=== PATIENT | male | born 1955 | race African-American/Black ===

== ENCOUNTER 2018-05-05 12:47 | Day surgery (SDC) | payer OTHER ==
[2018-05-04 13:01] VITALS: BMI 31.1
[2018-05-05] MEDS ORDERED: HEPARIN NA (PORCINE) 5,000 UNITS/ML 1ML VIAL ONE ×2 (17:04→18:36)
[2018-05-05] MEDS ORDERED: LIDOCAINE HCL 1%, 10 MG/ML (20ML VIAL) ONE (17:04)
[2018-05-05] MEDS ORDERED: MIDAZOLAM HCL 2 MG/2 ML SINGLE DOSE VIAL ONE (17:56)
[2018-05-05] MEDS ORDERED: ceFAZolin SODIUM 1 GM VIAL IVPB ONE (18:01)
[2018-05-05] MEDS ORDERED: ceFAZolin SODIUM 1 GM VIAL ONE (18:01)
[2018-05-05] MEDS ORDERED: LIDOCAINE HCL 1%, 10 MG/ML (50 mL VIAL) IJ ONE ×2 (18:10)
[2018-05-05] MEDS ORDERED: METOPROLOL TARTRATE 5 MG/5 ML VIAL ONE (18:29)
--- NOTE | 2018-05-05 19:15 | HP ---
Admitting History and Physical - Admission Chief Complaint: RLE claudication less than 2 blocks. Limitations to Obtaining History: No Limitations - Smoking History Smoking history: Current every day smoker Have you smoked in the past 12 months: Yes Aproximately how many cigarettes per day: 10 - Alcohol/Substance Use Hx Alcohol Use: Yes (SOCIAL) Home Medications - Allergies Allergies/Adverse Reactions: Allergies Allergy/AdvReac Type Severity Reaction Status Date / Time No Known Allergies Allergy Verified 05/05/18 13:36 - Home Medications Home Medications: Ambulatory Orders Aspirin 81 mg PO DAILY 07/05/13 Carvedilol [Coreg -] 25 mg PO BID 07/05/13 Enalapril Maleate [Vasotec -] 20 mg PO BID 07/05/13 Tramadol HCl [Ultram] 100 mg PO BID 07/05/13 hydrALAZINE HCL [Apresoline] 50 mg PO BID 07/05/13 Ammonium Lactate Cream [Lac-Hydrin 12% Cream -] 1 applic TP DAILY #60 tube 09/08 Carvedilol 25 mg PO BID 05/04/18 Docusate Sodium [Colace] 100 mg PO BID 05/04/18 Esomeprazole Magnesium 40 mg PO DAILY 05/04/18 Furosemide [Lasix] 40 mg PO BID 05/04/18 Insulin Detemir [Levemir Flextouch] 45 unit SQ ACHS 05/04/18 Insulin Lispro [Humalog] 30 unit SQ DAILY 05/04/18 Rivaroxaban [Xarelto -] 20 mg PO DAILY 05/04/18 Spironolactone [Aldactone] 25 mg PO DAILY 05/04/18 Zolpidem Tartrate [Ambien] 10 mg PO PRN PRN 05/04/18 Gabapentin 400 mg PO BID 05/05/18 Simvastatin 20 mg PO DAILY 05/05/18 Review of Systems - Review of Systems Constitutional: reports: No Symptoms Eyes: reports: No Symptoms HENT: reports: No Symptoms Neck: reports: No Symptoms Cardiovascular: reports: No Symptoms Respiratory: reports: No Symptoms Gastrointestinal: reports: No Symptoms Integumentary: reports: No Symptoms Neurological: reports: No Symptoms Endocrine: reports: No Symptoms Hematology/Lymphatic: reports: No Symptoms Psychiatric: reports: No Symptoms Physical Examination Vital Signs: Vital Signs Temperature 98.6 F 05/05/18 13:33 Pulse Rate 70 05/05/18 13:33 Respiratory Rate 20 05/05/18 13:33 Blood Pressure 130/78 05/05/18 13:33 O2 Sat by Pulse Oximetry (%) 96 05/05/18 13:32 Constitutional: Yes: Well Nourished, No Distress, Calm Eyes: Yes: WNL, Conjunctiva Clear, EOM Intact HENT: Yes: WNL, Atraumatic, Normocephalic Neck: Yes: WNL, Supple, Trachea Midline Cardiovascular: Yes: WNL, Regular Rate and Rhythm Respiratory: Yes: WNL, Regular, CTA Bilaterally Gastrointestinal: Yes: WNL, Normal Bowel Sounds Musculoskeletal: Yes: WNL Extremities: Yes: WNL Edema: No Peripheral Pulses WNL: No Integumentary: Yes: WNL Neurological: Yes: WNL, Alert, Oriented ...Motor Strength: WNL Psychiatric: Yes: WNL Problem List - Problems (1) Claudication of right lower extremity Assessment/Plan: RLE claudication 1. For RLE angiogram today Code(s): I73.9 - PERIPHERAL VASCULAR DISEASE, UNSPECIFIED
--- NOTE | 2018-05-05 19:17 | OP ---
Operative Note - Note: Operative Date: 05/05/18 Pre-Operative Diagnosis: RLE claudication Operation: Aortogram, CO2 RLE angiogram, Popliteal artery atherectomy with DCB angioplasty, anterior tibial artery angioplasty Findings: 90 percent stenosis of popliteal artery 80 percent stenosis anterior tibial artery Post-Operative Diagnosis: Same as Pre-op Surgeon: Lamberto Sims Anesthesia: Fractional Estimated Blood Loss (mls): 50 Operative Report Dictated: Yes
[2018-05-05] MEDS ORDERED: SODIUM CHLORIDE 1,000 ML IV SCH (19:45)
[2018-05-05 20:36] VITALS: BP 152/90; PULSE 72; TEMP 97.4
--- NOTE | 2018-05-07 10:50 | OP ---
DATE OF OPERATION: 05/05/2018 PREOPERATIVE DIAGNOSIS: Claudication, right leg. POSTOPERATIVE DIAGNOSIS: Claudication, right leg. PROCEDURE: Aortogram, right lower extremity angiogram, popliteal artery athrectomy with drug-coated balloon angioplasty, tibial artery angioplasty. SURGEON: Lamberto Hall DO ANESTHESIA: Fractional. BLOOD LOSS: 50 mL. INDICATIONS: The patient is a 62-year-old male with right lower extremity claudication. He had preoperative ultrasound performed showing that he has a 75% blockage behind his right popliteal artery. The patient was consented for the procedure understanding all risks, benefits, and alternatives then came into the operating room. DESCRIPTION OF PROCEDURE: Once in the operating room, he was laid on the operating room table in a supine manner. The area of the right and left groin was prepped and draped in a sterile surgical manner. We then injected 10 mL of lidocaine 1% in the area using ultrasound guidance. We also used ultrasound guidance and we were able to then use our micropuncture needle and puncture the right common femoral artery. Micropuncture wire was inserted, and a traditional 5-Azeri sheath was inserted. A 0.035 floppy guidewire was then inserted into the aorta followed by an Omni Flush catheter. We then shot an aortogram via hand injection showing that the aorta and the iliac arteries were without any disease. We then used a 0.035 floppy guidewire and went up and over to the common femoral artery and Omni Flush catheter followed. We then shot an angiogram of the right lower extremity showing that the common femoral artery, the profunda, and the SFA were patent. Behind the popliteal artery he had about an 80% stenosis, and the origin of the anterior tibial artery probably had an 80% stenosis. The patient had 2-vessel runoff into the foot. Multiple images were then taken using CO2 so that we could preserve the patient's kidneys because the patient had the creatinine. We then exchanged for a ViperWire. We then went ahead and performed a CSI orbital athrectomy of the popliteal artery, and we did that on low and medium. We then went ahead and used a 5 x 4 drug-coated Lutonix balloon and performed angioplasty of the popliteal artery. We then placed a 3 x 4 Ultraverse balloon and performed angioplasty of the anterior tibial artery. We then performed a completion angiogram showing that the SFA was patent, the popliteal artery was patent, and the anterior tibial artery was patent, and there was good, brisk flow going all the way down into the foot. At this point, we brought our sheath up and over. StarClose device was successfully deployed in the left common femoral artery. Pressure was held for 5 minutes. After there was no bleeding, the area was wet and dried, and Dermabond was placed. The patient tolerated the procedure well with no complications. The patient was transferred to the PACU in stable condition. LAMBERTO HALL DO [id number]
== END 2018-05-05 20:35 | disposition home or self-care (01) ==
LOC: JASUSAT 12:47 → JASU-SURG 12:47 → J7W 20:17 → JASUSAT 20:35
PROVIDERS: ATTEND Surgery Vascular Surgery
PROC: 047M3Z1 Dilation of Right Popliteal Artery using Drug-Coated Balloon, Percutaneous Approach (ICD-10-PCS; principal; 2018-05-05 14:30)
DX: I70.211 Atherosclerosis of native arteries of extremities with intermittent claudication, right leg (principal); I10 Essential (primary) hypertension; E11.9 Type 2 diabetes mellitus without complications; Z79.4 Long term (current) use of insulin
CPT/HCPCS: 37225; 37228; C2623; 82962; 94760; J1644

== ENCOUNTER 2018-06-02 04:50 | Day surgery (SDC) | payer OTHER ==
[2018-05-31 14:52] VITALS: BMI 31.4
[2018-06-02] MEDS ORDERED: HEPARIN NA (PORCINE) 5,000 UNITS/ML 1ML VIAL ONE ×2 (07:30→09:48)
[2018-06-02] MEDS ORDERED: LIDOCAINE HCL 1%, 10 MG/ML (20ML VIAL) ONE (07:30)
[2018-06-02] MEDS ORDERED: ONDANSETRON 4 MG/2 ML VIAL IVPUSH PRN (08:56)
[2018-06-02] MEDS ORDERED: LACTATED RINGERS SOLUTION 1,000 ML IV SCH (09:00)
[2018-06-02] MEDS ORDERED: MIDAZOLAM HCL 2 MG/2 ML SINGLE DOSE VIAL ONE (09:15)
[2018-06-02] MEDS ORDERED: ceFAZolin SODIUM 1 GM VIAL IVPB ONE (09:29)
[2018-06-02] MEDS ORDERED: ceFAZolin SODIUM 1 GM VIAL ONE (09:30)
[2018-06-02] MEDS ORDERED: LIDOCAINE HCL 1%, 10 MG/ML (50 mL VIAL) IJ ONE (09:34)
[2018-06-02] MEDS ORDERED: PROPOFOL 20 ML ONE (09:42)
--- NOTE | 2018-06-02 10:24 | HP ---
Admitting History and Physical - Admission Chief Complaint: left lower extremity claudication Limitations to Obtaining History: No Limitations - Smoking History Smoking history: Current every day smoker Have you smoked in the past 12 months: Yes Aproximately how many cigarettes per day: 10 - Alcohol/Substance Use Hx Alcohol Use: Yes (SOCIAL) Home Medications - Allergies Allergies/Adverse Reactions: Allergies Allergy/AdvReac Type Severity Reaction Status Date / Time No Known Allergies Allergy Verified 05/31/18 14:29 - Home Medications Home Medications: Ambulatory Orders Aspirin 81 mg PO DAILY 07/05/13 Carvedilol [Coreg -] 25 mg PO BID 07/05/13 Enalapril Maleate [Vasotec -] 20 mg PO BID 07/05/13 Tramadol HCl [Ultram] 100 mg PO BID 07/05/13 hydrALAZINE HCL [Apresoline] 50 mg PO BID 07/05/13 Docusate Sodium [Colace] 100 mg PO BID 05/04/18 Esomeprazole Magnesium 40 mg PO DAILY 05/04/18 Furosemide [Lasix] 40 mg PO BID 05/04/18 Insulin Detemir [Levemir Flextouch] 30 unit SQ ACHS 05/04/18 Insulin Lispro [Humalog] 20 unit SQ DAILY 05/04/18 Rivaroxaban [Xarelto -] 20 mg PO DAILY 05/04/18 Spironolactone [Aldactone] 25 mg PO DAILY 05/04/18 Zolpidem Tartrate [Ambien] 10 mg PO PRN PRN 05/04/18 Gabapentin 400 mg PO BID 05/05/18 Simvastatin 20 mg PO DAILY 05/05/18 Ibuprofen 400 mg PO TID 05/31/18 Sildenafil Citrate [Viagra] 50 mg PO DAILY 05/31/18 New Blood Thinner? 1 tab PO DAILY 06/02/18 Review of Systems - Review of Systems Constitutional: reports: No Symptoms Eyes: reports: No Symptoms HENT: reports: No Symptoms Neck: reports: No Symptoms Cardiovascular: reports: No Symptoms Respiratory: reports: No Symptoms Gastrointestinal: reports: No Symptoms Genitourinary: reports: No Symptoms Musculoskeletal: reports: No Symptoms Integumentary: reports: No Symptoms Neurological: reports: No Symptoms Endocrine: reports: No Symptoms Hematology/Lymphatic: reports: No Symptoms Psychiatric: reports: No Symptoms Physical Examination Vital Signs: Vital Signs Temperature 97.4 F L 05/31/18 14:27 Pulse Rate 82 05/31/18 14:27 Respiratory Rate 20 05/31/18 14:27 Blood Pressure 146/88 05/31/18 14:27 O2 Sat by Pulse Oximetry (%) 94 L 06/02/18 07:56 Constitutional: Yes: Well Nourished, No Distress, Calm Eyes: Yes: WNL, Conjunctiva Clear, EOM Intact HENT: Yes: WNL, Atraumatic, Normocephalic Neck: Yes: WNL, Supple, Trachea Midline Cardiovascular: Yes: WNL, Regular Rate and Rhythm Respiratory: Yes: WNL, Regular, CTA Bilaterally Gastrointestinal: Yes: WNL, Normal Bowel Sounds Musculoskeletal: Yes: WNL Extremities: Yes: WNL Edema: No Peripheral Pulses WNL: Yes (palpable PT pulse ) Integumentary: Yes: WNL Neurological: Yes: WNL, Alert, Oriented ...Motor Strength: WNL Psychiatric: Yes: WNL Problem List - Problems (1) Claudication of left lower extremity Assessment/Plan: Left lower extremity claudication 1. For angiogram today . preop US showed 70% stenosis in left SFA. Code(s): I73.9 - PERIPHERAL VASCULAR DISEASE, UNSPECIFIED
--- NOTE | 2018-06-02 10:25 | OP ---
Operative Note - Note: Operative Date: 06/02/18 Pre-Operative Diagnosis: LLE claudication Operation: Aortogram, LLE angiogram, SFA atherectomy, SFA DCB angioplaty Findings: 75% sfa stenosis Post-Operative Diagnosis: Same as Pre-op Anesthesia: Fractional Estimated Blood Loss (mls): 50 Operative Report Dictated: Yes
[2018-06-02 16:27] VITALS: BP 140/90; PULSE 88; TEMP 92
--- NOTE | 2018-07-03 10:54 | OP ---
DATE OF OPERATION: 06/02/2018 PREOPERATIVE DIAGNOSIS: Left lower extremity claudication. POSTOPERATIVE DIAGNOSIS: Left lower extremity claudication. PROCEDURE: Aortogram; left lower extremity angiogram; superior femoral artery atherectomy; superficial femoral artery drug-coated balloon angioplasty. SURGEON: Lamberto Hall DO ANESTHESIA: Fractional. BLOOD LOSS: 50 mL. The patient is a 62-year-old male that has left lower extremity claudication less than 2 blocks. It is lifestyle-limiting. He had a preoperative ultrasound showing that he has an SFA lesion of about 80%. The patient came in through ambulatory surgery. The patient was consented for the procedure, understanding all risks, benefits, and alternatives, and then taken to the operating room. Once in the operating room, he was laid on the operative table in a supine manner and the area of the right and left groin were prepped and draped in sterile surgical manner. We then went ahead and injected 10 mL of lidocaine 1% over the right common femoral artery. We then went ahead and punctured the right common femoral artery using a micropuncture needle. A micropuncture wire was inserted, a micropuncture sheath was inserted. A 0.035 floppy guidewire was inserted into the aorta, followed by a sheath. We then placed a 0.035 floppy guidewire up into the aorta, followed by an Omniflush catheter. We then shot an aortogram by hand-injection, showing that the aorta and the iliac arteries are without any disease. We then placed a 0.035 floppy guidewire up and over into the left common femoral artery and the Omniflush catheter followed. We then shot an angiogram of the left lower extremity by hand-injection, showing that the common femoral artery, the profunda, and the proximal SFA were patent. The mid SFA to distal SFA had an 80% to 90% stenosis. Popliteal artery was patent and the patient had 2-vessel runoff into the foot. At this point, was placed a 0.035 stiff guidewire into the SFA, removed the Omniflush catheter, and placed a 6 x 45 crossover sheath. Then, 5000 units of IV heparin were administered to the patient. We then placed a 0.035 stiff guidewire down to our stenosis and, using our Quick-Cross catheter, we were able to cross our stenosis and place the wire in the popliteal artery. We then exchanged the wire for a ViperWire. We then went ahead and performed orbital atherectomy of our SFA lesion under low and medium. We then shot a completion angiogram, showing that the stenosis was still present and we went ahead and used a 6 x 6 drug-coated Lutonix balloon and performed angioplasty of the SFA. We left the balloon up for 3 minutes disseminating into the artery. Completion angiogram after angioplasty showed that the SFA was patent, there was no recoil, there was no dissection, there was good brisk flow into the tibial arteries and at the foot. At this point, we decided no more intervention was needed. We brought our sheath up and over and StarClose was successfully deployed in the right common femoral artery. Pressure was held for 5 minutes. After there was no more bleeding, the area was cleaned and dried and Dermabond was placed. The patient tolerated the procedure with no complication. The patient transferred to PACU in stable condition. Total blood loss was 50 mL. LAMBERTO HALL DO [id number]
== END 2018-06-02 12:45 | disposition home or self-care (01) ==
LOC: JASU-SURG 04:50
PROVIDERS: ATTEND Surgery Vascular Surgery
PROC: 047L3Z1 Dilation of Left Femoral Artery using Drug-Coated Balloon, Percutaneous Approach (ICD-10-PCS; principal; 2018-06-02 09:00)
DX: I70.212 Atherosclerosis of native arteries of extremities with intermittent claudication, left leg (principal); E11.9 Type 2 diabetes mellitus without complications; Z79.4 Long term (current) use of insulin; I10 Essential (primary) hypertension; G47.30 Sleep apnea, unspecified; I42.9 Cardiomyopathy, unspecified
CPT/HCPCS: 37225; C2623; 76000-TC-FY; 82962; 94760; J1644

== ENCOUNTER 2019-01-04 12:56 | Emergency (ER) | payer OTHER ==
[2019-01-04 13:02] VITALS: BMI 30.3
[2019-01-04] MEDS ORDERED: BACITRACIN 0.9 GM PACKET ONE (14:02)
[2019-01-04 14:13] LABS: BASO % 0.3 % (0-2.0); HEMATOCRIT 35.8 % (35.4-49); HEMOGLOBIN 10.8 GM/dL (11.7-16.9); LYMPH % 12.5 % (8-40); MCH 21.4 pg (25.7-33.7); MCHC 30.2 g/dl (32.0-35.9); MEAN CELL VOLUME 71.1 fl (80-96); MEAN PLT VOLUME 7.4 fl (7.5-11.1); MONO % 9.6 % (3.8-10.2); NEUT % 76.6 % (42.8-82.8); PLATELET COUNT 263 K/MM3 (134-434); RBC 5.03 M/mm3 (4.00-5.60); RDW 20.4 % (11.9-15.9); WHITE BLOOD COUNT 7.1 K/mm3 (4.0-10.0)
[2019-01-04 14:25] LABS: INR 3.12 (0.83-1.09); PROTHROMBIN TIME (PATIENT) 37.2 SEC (9.7-13.0)
--- NOTE | 2019-01-04 14:29 | PDOC ---
History of Present Illness - General Chief Complaint: Wound Stated Complaint: LEG WOUNDS Time Seen by Provider: 01/04/19 13:10 History Source: Patient Exam Limitations: No Limitations - History of Present Illness Initial Comments: 01/04/19 14:23 63yo M with PMH of PAD s/p stent in bilateral lower extremities 2018, AICD, CHF , IDDM, HTN, HLD presenting to ED for complaint of L leg wound. He has had the wound for about a month or so but pt states it keeps draining clear fluid and is not going away. Also has similar but shallower wounds on the posterior R calf. He also endorses L toe nail falling off in the shower this AM which is not actively bleeding. He states that he has gotten the wounds before and it would heal on its own leaving a scar. Denies fever, chills, leg pain, claudication, cold extremities, abdominal pain, sob, cp, palpitations, headache , dizziness, urinary/bowel symptoms. He is also complaining of firm lower extremities which developed a few months after stent placement which is not going away. PMD: Alix PMH: see hpi PSH: see hpi Meds: see med rec Allergies: nkda Social: 5 cigarettes/day Past History - Past Medical History Allergies/Adverse Reactions: Allergies Allergy/AdvReac Type Severity Reaction Status Date / Time No Known Allergies Allergy Verified 01/04/19 13:01 Home Medications: Ambulatory Orders Aspirin 81 mg PO DAILY 07/05/13 Carvedilol [Coreg -] 25 mg PO BID 07/05/13 Tramadol HCl [Ultram] 100 mg PO BID 07/05/13 hydrALAZINE HCL [Apresoline] 50 mg PO BID 07/05/13 Docusate Sodium [Colace] 100 mg PO BID 05/04/18 Esomeprazole Magnesium 40 mg PO DAILY 05/04/18 Furosemide [Lasix] 40 mg PO BID 05/04/18 Insulin Detemir [Levemir Flextouch] 30 unit SQ ACHS 05/04/18 Insulin Lispro [Humalog] 20 unit SQ DAILY 05/04/18 Rivaroxaban [Xarelto -] 20 mg PO DAILY 05/04/18 Spironolactone [Aldactone] 25 mg PO DAILY 05/04/18 Zolpidem Tartrate [Ambien] 10 mg PO PRN PRN 05/04/18 Gabapentin 400 mg PO TID 05/05/18 Simvastatin 20 mg PO DAILY 05/05/18 Sildenafil Citrate [Viagra] 50 mg PO PRN 05/31/18 Cephalexin Monohydrate [Keflex -] 500 mg PO Q6H #28 capsule 01/04/19 Sulfamethoxazole/Trimethoprim [Bactrim Ds -] 1 tab PO BID #14 tablet 01/04/19 Anemia: No Asthma: No Cancer: No Cardiac Disorders: Yes (IMPLANTED DEFIBRILLATOR; ENLARGED HEART) CVA: No COPD: (H/O SLEEP APNEA) CHF: Yes Dementia: No Diabetes: Yes GI Disorders: No Disorders: No HTN: Yes Hypercholesterolemia: Yes Liver Disease: No Seizures: No Thyroid Disease: No Other medical history: wounds - Surgical History Abdominal Surgery: No Appendectomy: No Cardiac Surgery: Yes Cholecystectomy: No Lung Surgery: No Neurologic Surgery: No Orthopedic Surgery: Yes (Left THR) - Suicide/Smoking/Psychosocial Hx Smoking History: Never smoked Have you smoked in the past 12 months: Yes Number of Cigarettes Smoked Daily: 10 Information on smoking cessation initiated: No 'Breaking Loose' booklet given: 05/04/18 Hx Alcohol Use: No Drug/Substance Use Hx: No Substance Use Type: Alcohol Hx Substance Use Treatment: No *Physical Exam - Vital Signs Last Vital Signs Temp Pulse Resp BP Pulse Ox 99 F 71 17 142/71 99 01/04/19 13:00 01/04/19 13:00 01/04/19 13:00 01/04/19 13:00 01/04/19 13:21 ED Treatment Course - LABORATORY CBC & Chemistry Diagram: 01/04/19 13:52 01/04/19 13:52 - ADDITIONAL ORDERS Additional order review: 01/04/19 13:52 RBC 5.03 MCV 71.1 L MCHC 30.2 L RDW 20.4 H MPV 7.4 L Neutrophils % 76.6 Lymphocytes % 12.5 Monocytes % 9.6 Eosinophils % 1.0 Basophils % 0.3 Medical Decision Making - Medical Decision Making 01/04/19 14:27 63yo M with PMH of PAD s/p stent in bilateral lower extremities 2018, AICD, CHF , IDDM, HTN, HLD presenting to ED for complaint of L leg wound. He has had the wound for about a month or so but pt states it keeps draining clear fluid and is not going away. Also has similar but shallower wounds on the posterior R calf. He also endorses L toe nail falling off in the shower this AM which is not actively bleeding. He states that he has gotten the wounds before and it would heal on its own leaving a scar. Denies fever, chills, leg pain, claudication, cold extremities, abdominal pain, sob, cp, palpitations, headache , dizziness, urinary/bowel symptoms. He is also complaining of firm lower extremities which developed a few months after stent placement which is not going away. Vitals: wnl PE: 2cm wound on L lateral troy with healing wounds on L troy, shallow ulcerations on posterior R calf, dry toenails, 4th digit L toenail missing with dried blood. L ulceration has edema and erythema without clear borders. Clear fluid draining. Ddx includes but not limited to cellulitis, erysipelas, necrotizing fascitis, venous stasis ulcer *DC/Admit/Observation/Transfer Diagnosis at time of Disposition: Leg wound, right Qualifiers: Encounter type: initial encounter Qualified Code(s): S81.801A - Unspecified open wound, right lower leg, initial encounter Leg wound, left Qualifiers: Encounter type: initial encounter Qualified Code(s): S81.802A - Unspecified open wound, left lower leg, initial encounter - Discharge Dispostion Disposition: HOME Condition at time of disposition: Good Decision to Admit order: No - Prescriptions Prescriptions: Cephalexin Monohydrate [Keflex -] 500 mg PO Q6H #28 capsule Sulfamethoxazole/Trimethoprim [Bactrim Ds -] 1 tab PO BID #14 tablet - Referrals Referrals: Lamberto Sims MD [Non Staff, Medical] - - Patient Instructions Additional Instructions: You were seen in the emergency room for wounds on your legs. They are superficial and the blood tests show that it is not a deep infection. I recommend making an appointment with Dr. Sims and the wound clinic [phone] You may need a referral so please also see your primary care doctor as well within the next week. Antibiotics were sent to your pharmacy, please take as directed. Keflex ( cephalexin) 500mg every 6 hours for 7 days and Bactrim DS twice a day for 7 days. Keep the wounds clean and dry, apply a dressing on top. Keep your legs elevated when you're at rest. Come back to the emergency room if swelling gets worse, wound appears worse, you have fever, the legs look more red, they are hot to the touch or if any new concerning symptom develops. Thank you - Post Discharge Activity
[2019-01-04 14:33] LABS: ALBUMIN 3.1 g/dl (3.4-5.0); BILIRUBIN,TOTAL 1.4 mg/dL (0.2-1); BLOOD UREA NITROGEN 22.8 mg/dL (7-18); CALCIUM 8.5 mg/dL (8.5-10.1); CREATININE 1.6 mg/dL (0.55-1.3); POTASSIUM 3.5 mmol/L (3.5-5.1); TOT PROT 6.5 g/dl (6.4-8.2)
[2019-01-04 15:01] LABS: ANISOCYTOSIS 0; MACROCYTOSIS 0; PLATELET ESTIMATE NORMAL
--- NOTE | 2019-01-04 15:46 | PDOC ---
Documentation entered by Hue Aldana SCRIBE, acting as scribe for Tom Hernandez MD. Tom Hernandez MD: This documentation has been prepared by the Kayta sneed Sammi, SCRIBE, under my direction and personally reviewed by me in its entirety. I confirm that the documentation accurately reflects all work, treatment, procedures, and medical decision making performed by me. Attending Attestation - Resident Resident Name: LanaVeronica - ED Attending Attestation I have performed the following: I have examined & evaluated the patient, The case was reviewed & discussed with the resident, I agree w/resident's findings & plan, Exceptions are as noted - HPI HPI: 01/04/19 13:56 The patient is a 63 year old male, with a significant PMH of DM, left lower extremity SFA angioplasty 03/2018 (Dr. Sims), who presents to the emergency department for evaluation of 1 month of wounds and pain to bilateral lower extremities. The patient complains of pain and swelling to lower legs. He notes he walks about the distance of 2 parking meters and then needs to rest due to pain to his legs. He states this has been going on for atleast 2 months with no progression. He also notes two wounds to the L leg, 1 wound to the R leg which have not changed over the last month. He states one of the wounds to the L leg leaks clear fluids at times. He also notes the nail on his L 4th toe fell off in the shower today. The patient reports blood sugars typically in the high 100s. He denies numbness or weakness to the LE. Patient notes he had an appointment today with a leg doctor at [facility] but felt [facility] could do more for his circumstance prompting ED visit. Denies The patient denies chest pain, shortness of breath, headache and dizziness. Denies fever, chills, nausea, vomiting, diarrhea and constipation. Denies dysuria, frequency, urgency and hematuria. Denies focal weakness/numbness Allergies: NKA Past surgical history: left lower extremity SFA angioplasty 03/2018 Vascular: Levi - Physicial Exam PE: 01/04/19 13:56 GENERAL: Awake, alert, and fully oriented, in no acute distress EYES: PERRLA, EOMI, sclera anicteric, conjunctiva clear ENT: Oropharynx clear without exudates. Moist mucosa NECK: Normal ROM, supple, no lymphadenopathy, JVD, or masses LUNGS: Breath sounds equal, clear to auscultation bilaterally. No wheezes, and no crackles HEART: Regular rate and rhythm, normal S1 and S2, no murmurs, rubs or gallops ABDOMEN: Soft, nontender, normoactive bowel sounds. No guarding, no rebound. No masses EXTREMITIES: (+)1cm ulcer to left lateral mid troy with fibrinous material and mild clear drainage. No surrounding erythema or warmth (+)2mm superficial ulcer to left medial troy with no drainage, erythema, or warmth +(2mm) R distal healed ulcer to posterior distal calf, dry w/o surrounding erythema, warmth, drainage (+)left 4th digit missing toenail. Warm, well perfused bilateral feet with normal cap refill NEUROLOGICAL: Normal speech, cranial nerves intact,5/5 strength in all 4 extremities proximally and distally, normal sensation to light touch in all 4 extremities, normal cerebellar exam, normal gait SKIN: As noted above - Medical Decision Making 01/04/19 15:00 63yo M hx DM, PAD s/p L SFA stent presents to the ED with 2 months of claudication and 1 month of multiple wounds With regards to claudication, on exam distally, LE are WWP and pt is unlikely to require emergent intervention, however will obtain arterial US to evaluate for patency. Attempted to discuss with Dr. Sims, however he is not available per his answering service due to the holiday Pt will need close vascular f/u if US is wnl With regards to multiple leg wounds, they do not appear infected and pt has no systemic signs of infection at this time. 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 No white count. Arterial US of LE with no hemodynamically significant stenosis Pt contines to be well appearing Given high risk of infection of leg wounds, will treat with keflex and bactrim No emergent condition requiring admission at this time Will DC pt with close f.u with Dr. Sims for his claudication and wound care I discussed the physical exam findings, ancillary test results and final diagnoses with the patient. I answered all of the patient's questions. The patient was satisfied with the care received and felt comfortable with the discharge plan and treatment plan. The patient will call their primary care physician within 24 hours to arrange follow-up and will return to the Emergency Department with any new, persistent or worsening symptoms.
[2019-01-04 17:14] VITALS: TEMP 98.1
[2019-01-04 17:18] VITALS: BP 159/97; PULSE 68
== END 2019-01-04 17:35 | disposition home or self-care (01) ==
LOC: JER 12:56
DX: S81.801A Unspecified open wound, right lower leg, initial encounter (principal); S81.802A Unspecified open wound, left lower leg, initial encounter; I25.10 Atherosclerotic heart disease of native coronary artery without angina pectoris; E11.9 Type 2 diabetes mellitus without complications; I10 Essential (primary) hypertension; E78.5 Hyperlipidemia, unspecified; T82.9XXA Unspecified complication of cardiac and vascular prosthetic device, implant and graft, initial encounter; I73.9 Peripheral vascular disease, unspecified; Z79.4 Long term (current) use of insulin
CPT/HCPCS: 36415; 80053; 83605; 85025; 85610; 87040; 93925-TC; 99282-25

== ENCOUNTER 2019-05-30 10:17 | Emergency (ER) | payer OTHER ==
--- NOTE | 2019-05-30 11:33 | PDOC ---
History of Present Illness - General Chief Complaint: Injury Stated Complaint: Wound Time Seen by Provider: 05/30/19 10:25 - History of Present Illness Initial Comments: 05/30/19 11:27 The patient is a 63 year old male with a history of DM, VAD, HTN, HLD, CHF who presents for evaluation of a wound to his left foot. Per the patient's NH, the patient was picking at his left 5th toe and ripped off his toenail. They were unable to stop the bleeding due to the patient being on Xeralto prompting his presentation to the ED for further evaluation. The patient otherwise denies fevers, chills, SOB, chest pain, nausea, vomiting, abdominal pain, numbness, tingling, or weakness. Past History - Past Medical History Allergies/Adverse Reactions: Allergies Allergy/AdvReac Type Severity Reaction Status Date / Time No Known Allergies Allergy Verified 05/30/19 11:07 Home Medications: Ambulatory Orders Aspirin 81 mg PO DAILY 07/05/13 Carvedilol [Coreg -] 25 mg PO BID 07/05/13 hydrALAZINE HCL [Apresoline] 50 mg PO BID 07/05/13 Rivaroxaban [Xarelto -] 20 mg PO DAILY 05/04/18 Spironolactone [Aldactone] 25 mg PO DAILY 05/04/18 Zolpidem Tartrate [Ambien] 10 mg PO PRN PRN 05/04/18 Acetaminophen 325 mg PO Q6H 05/30/19 Albuterol 2.5/Ipratropium 0.5 [Duoneb -] 1 amp NEB Q6H PRN 05/30/19 Cephalexin [Keflex] 500 mg PO BID 05/30/19 Guaifenesin 100 mg PO Q4H PRN 05/30/19 Isosorbide Mononitrate [Isosorbide Mononitrate ER] 30 mg PO DAILY 05/30/19 Lactobacillus Acidophilus [Acidophilus] 1 each PO DAILY 05/30/19 Mineral Oil/Hydrophil Petrolat [Dermaphor Ointment] gm TP BID 05/30/19 Omeprazole 40 mg PO DAILY 05/30/19 Rivaroxaban [Xarelto -] 20 mg PO DAILY 05/30/19 Sulfamethoxazole/Trimethoprim [Bactrim Ds -] 1 tab PO BID #14 tablet 05/30/19 Torsemide 20 mg PO BID 05/30/19 Valsartan [Diovan] 160 mg PO DAILY 05/30/19 Zolpidem Tartrate [Ambien] 10 mg PO DAILY 05/30/19 Anemia: No Asthma: No Cancer: No Cardiac Disorders: Yes (defibrillator) CVA: No COPD: No CHF: Yes Dementia: No Diabetes: Yes GI Disorders: No Disorders: No HTN: Yes Hypercholesterolemia: Yes Liver Disease: No Seizures: No Thyroid Disease: No - Surgical History Abdominal Surgery: No Appendectomy: No Cardiac Surgery: Yes Cholecystectomy: No Lung Surgery: No Neurologic Surgery: No Orthopedic Surgery: Yes (Left THR) - Psycho Social/Smoking Cessation Hx Smoking History: Never smoked Have you smoked in the past 12 months: No Number of Cigarettes Smoked Daily: 10 Information on smoking cessation initiated: No 'Breaking Loose' booklet given: 05/04/18 Hx Alcohol Use: No Drug/Substance Use Hx: No Substance Use Type: Alcohol Hx Substance Use Treatment: No Review of Systems - Review of Systems Comments:: 05/30/19 11:32 Constitutional: No fevers, chills, fatigue, malaise HEENT: No Rhinorrhea, nasal congestion, visual changes Cardiovascular: No chest pain, syncope, palpitations, lightheadedness Respiratory: No Cough, SOB, Hemoptysis, Gastrointestinal: No Abdominal pain, Nausea, Vomiting, Constipation, Diarrhea, Melena Genitourinary: No Dysuria, Frequency, Urgency, Hesitancy, Hematuria, Flank pain Musculoskeletal: No Myalgia, arthralgia Skin: Wound to the left 5th toe. No rashes, itching, bruising, pallor Neurologic: No Headache, Dizziness, Numbness, Weakness, or Tingling Psychiatric: No Hallucinations. No SI or HI *Physical Exam - Vital Signs Last Vital Signs Temp Pulse Resp BP Pulse Ox 97.4 F L 72 16 129/79 100 05/30/19 10:20 05/30/19 10:20 05/30/19 10:20 05/30/19 10:20 05/30/19 10:20 - Physical Exam Comments: 05/30/19 11:32 General Appearance: Nourished. No Apparent Distress HEENT: No Pharyngeal Erythema, Tonsillar Exudate, Tonsillar Erythema Neck: No Cervical Lymphadenopathy Respiratory/Chest: Lungs Clear, Normal Breath Sounds. No Crackles, Rales, Rhonchi, Wheezing Cardiovascular: Regular Rhythm, Regular Rate. No Murmur, Gallops, Rubs Gastrointestinal/Abdominal: Normal Bowel Sounds, Soft. No Guarding, Rebound, Tenderness Musculoskeletal: No CVA Tenderness Extremity: Avulsed left 5th toenail with active bleeding and skin tear to the lateral aspect of the left 5th toe. Normal Capillary Refill Integumentary: Normal Color, Dry, Warm Neurologic: Fully Oriented, Alert, Normal Mood/Affect, Normal Response, Medical Decision Making - Medical Decision Making 05/30/19 11:33 The patient is a 63 year old male with a history of DM, VAD, HTN, HLD, CHF who presents for evaluation of a wound to his left foot. Given the patient's history and physical exam, we applied surgicell to the patient's wound in order to obtain hemostasis. The patient is at high risk for infection given his multiple medical co-morbidities. We are comfortable discharging the patient home with primary care provider follow up on bactrim. We discussed the plan and return precautions with the patient who voiced understanding and is agreeable with the plan. Discharge - Discharge Information Problems reviewed: Yes Clinical Impression/Diagnosis: Wound of foot Condition: Stable Disposition: HOME - Additional Discharge Information Prescriptions: Sulfamethoxazole/Trimethoprim [Bactrim Ds -] 1 tab PO BID #14 tablet - Follow up/Referral Referrals: Ezio Feránndez MD [Primary Care Provider] - - Patient Discharge Instructions Patient Printed Discharge Instructions: Skin Wound Additional Instructions: 1) Please follow-up with your primary care doctor in the next 2-3 days. Please call tomorrow to schedule a follow up appointment. If you cannot follow up with your doctor within 1 week please return to the Emergency Department for any urgent issues. 2) If you have any worsening of symptoms or any other concerns, please return to the ER immediately. Return if worsening symptoms including fevers, headache, vomiting, visual or hearing disturbances, abdominal pain, chest pain, shortness of breath, syncope, dehydration, inability to take things by mouth/vomiting, altered mental status, or worsening concerning symptoms. 3) Please continue taking your home medications as directed. Your medications on discharge include Bactrim. Side effects may include upset stomach, abdominal pain, vomiting, or diarrhea. Do not drink alcohol with your medications. - Post Discharge Activity
[2019-05-30 11:35] VITALS: BP 129/79; PULSE 72; TEMP 97.4; BMI 34.2
[2019-05-30] MEDS ORDERED: SILVER NITRATE 75% APPLIC STCK 1 PKT EACH ONE (12:05)
--- NOTE | 2019-05-30 12:28 | PDOC ---
Attending Attestation - Resident Resident Name: Andrew Aguillon - ED Attending Attestation I have performed the following: I have examined & evaluated the patient, The case was reviewed & discussed with the resident, I agree w/resident's findings & plan - HPI HPI: 05/30/19 12:15 63-year-old male with history of diabetes and peripheral vascular disease, tendency to pick at his skin, this morning self-avulsed his L 5th toenail and presents with bleeding. no other injury, no other complaints, no LOC. - Physicial Exam PE: 05/30/19 12:28 vss, afebrile chronically ill appearing L foot: avulsed L 5th toenail with venous nailbed oozing blood, no arterial bleed, no swelling or evidence of infection. - Medical Decision Making 05/30/19 12:29 63y/o M PVD, DM with avulsed L 5th toenail now with nailbed bleeding. hemostasis with pressure bandage, surgicel acutely happened, so no active infection but will ppx given PVD and diabetic reassess
== END 2019-05-30 16:00 | disposition home or self-care (01) ==
LOC: JER 10:17
DX: S91.105A Unspecified open wound of left lesser toe(s) without damage to nail, initial encounter (principal); X58.XXXA Exposure to other specified factors, initial encounter; Y93.89 Activity, other specified; Y92.122 Bedroom in nursing home as the place of occurrence of the external cause; Y99.8 Other external cause status; I11.0 Hypertensive heart disease with heart failure; E11.9 Type 2 diabetes mellitus without complications; E78.5 Hyperlipidemia, unspecified; I73.9 Peripheral vascular disease, unspecified; Z79.01 Long term (current) use of anticoagulants; Z79.82 Long term (current) use of aspirin; Z96.641 Presence of right artificial hip joint; Z95.810 Presence of automatic (implantable) cardiac defibrillator
CPT/HCPCS: 99282-25

== ENCOUNTER 2019-06-01 09:41 | Emergency (ER) | payer OTHER ==
--- NOTE | 2019-06-01 09:47 | PDOC ---
Attending Attestation - Resident Resident Name: John Quintero - HPI HPI: 06/01/19 09:51 Pt presents to the ED with active CPR in progress by EMS. Found down by [facility] staff greater than one hour prior to presentation--CPR initiated by NH. EMS attempted intubation without success and placed a needle cric which later became dislodged. They found him to be in PE and gave epi x 5 and bicarb , and continued CPR. EMS performed greater than 55 minutes of CPR prior to arrival in the ED without ROSC. On arrival to the ED, patient found to be in asystole, with no cardiac activity and fixed and dilated pupils. Pronounced at 9:42 am. - Physicial Exam PE: 06/01/19 09:55 Gen: unconscious, unresponsive HEENT: normocephalic, atraumatic CV: asystole, no cardiac activity on US Abd: non distended skin: no rashes or jaundice - Medical Decision Making 06/01/19 09:57 Pt presents to the ED in asystole after at least 60 minutes of cardiac arrest. Pupils fixed and dilated. No cardiac activity on US. Given the extended time in cardiac arrest and the lack of response to extensive resuscitative efforts, further resuscitation is futile. Pronounced at 9:42 am.
--- NOTE | 2019-06-01 09:49 | PDOC ---
History of Present Illness - General Stated Complaint: Cardiac Arrest Time Seen by Provider: 06/01/19 09:47 - History of Present Illness Initial Comments: 06/01/19 10:22 63 yo M with h/o DM, HTN, HLD, PVD, CHF [facility]IB[facility]S from [facility] w/ witnessed cardiac arrest. EMS reports patient found down by [place] [facility] ([facility]) pulseless 10 minutes prior to EMS arrival. EMS report patient in asystole on scene. EMS attempted cardiac resuscitation for 45 minutes [employer]PSC[employer] SEC[employer] OFFICER, administered epinephrine x 5 , and NaHCO3 x 1, with absent ROSC. EMS attempted failed intubation, and needle cricothyrotomy, which later became dislodged. Past History - Past Medical History Allergies/Adverse Reactions: Allergies Allergy/AdvReac Type Severity Reaction Status Date / Time No Known Allergies Allergy Verified 05/30/19 11:07 Home Medications: Ambulatory Orders Aspirin 81 mg PO DAILY 07/05/13 Carvedilol [Coreg -] 25 mg PO BID 07/05/13 hydrALAZINE HCL [Apresoline] 50 mg PO BID 07/05/13 Rivaroxaban [Xarelto -] 20 mg PO DAILY 05/04/18 Spironolactone [Aldactone] 25 mg PO DAILY 05/04/18 Zolpidem Tartrate [Ambien] 10 mg PO PRN PRN 05/04/18 Acetaminophen 325 mg PO Q6H 05/30/19 Albuterol 2.5/Ipratropium 0.5 [Duoneb -] 1 amp NEB Q6H PRN 05/30/19 Cephalexin [Keflex] 500 mg PO BID 05/30/19 Guaifenesin 100 mg PO Q4H PRN 05/30/19 Isosorbide Mononitrate [Isosorbide Mononitrate ER] 30 mg PO DAILY 05/30/19 Lactobacillus Acidophilus [Acidophilus] 1 each PO DAILY 05/30/19 Mineral Oil/Hydrophil Petrolat [Dermaphor Ointment] gm TP BID 05/30/19 Omeprazole 40 mg PO DAILY 05/30/19 Rivaroxaban [Xarelto -] 20 mg PO DAILY 05/30/19 Sulfamethoxazole/Trimethoprim [Bactrim Ds -] 1 tab PO BID #14 tablet 05/30/19 Torsemide 20 mg PO BID 05/30/19 Valsartan [Diovan] 160 mg PO DAILY 05/30/19 Zolpidem Tartrate [Ambien] 10 mg PO DAILY 05/30/19 Anemia: No Asthma: No Cancer: No Cardiac Disorders: Yes (defibrillator) CVA: No COPD: No CHF: Yes Dementia: No Diabetes: Yes GI Disorders: No Disorders: No HTN: Yes Hypercholesterolemia: Yes Liver Disease: No Seizures: No Thyroid Disease: No - Surgical History Abdominal Surgery: No Appendectomy: No Cardiac Surgery: Yes Cholecystectomy: No Lung Surgery: No Neurologic Surgery: No Orthopedic Surgery: Yes (Left THR) - Psycho Social/Smoking Cessation Hx Smoking History: Never smoked Have you smoked in the past 12 months: No Number of Cigarettes Smoked Daily: 10 'Breaking Loose' booklet given: 05/04/18 Hx Alcohol Use: No Drug/Substance Use Hx: No Substance Use Type: Alcohol Hx Substance Use Treatment: No Review of Systems - Review of Systems Comments:: 06/01/19 10:35 Unable to obtain 13 point ROS inspection *Physical Exam - Physical Exam Comments: 06/01/19 10:35 GENERAL: Patient unresponsive HEAD: No signs of trauma, normocephalic, atraumatic EYES: Pupils non reactive, neg occulocephalic reflex, sclera anicteric, conjunctiva clear ENT: nares patent, oropharynx clear without exudates. Moist mucosa NECK: supple, no lymphadenopathy, JVD, or masses LUNGS: absent breath sounds BL HEART: Absent cardiac rate,rhythm, absent peripheral pulses ABDOMEN: Soft, NDS. No masses EXTREMITIES : Normal inspection, Normal range of motion, no edema. No clubbing or cyanosis NEUROLOGICAL: Cranial nerves II through XII not intact. SKIN: Warm, Dry, normal turgor, + Left tib/fib venous stasis lesions. Medical Decision Making - Medical Decision Making 06/01/19 10:25 63 yo M with h/o DM, HTN, HLD, PVD, CHF, defibrillator, pacemaker, COPD, BIBEMS from [facility] ([facility]) w/ witnessed cardiac arrest 1 hour [employer]. BP 0, HR 0, RR 0, patient unresponsive, absent breath sounds, absent cardiac activity/ global hypokinesis on ultrasound, and asystole on cardiac cath technologist upon arrival to ED 09:35. EMS reports attempting cardiac resuscitation x 45 minutes, administered epi x 5, NaHCO3 x 1, with absent ROSC. + failed ET tube placement, with attempt at needle cricothyrotomy. ED Course Patient pronounced 9:42AM Facility ([facility] [id number]) Notified of patient 1005 AM Technology Intern rejected case () ODN # [id number] Family notified (Karen Peter-sister, and Cathy Peter-son) 1010 AM, present at bedside Discharge - Discharge Information Problems reviewed: Yes Clinical Impression/Diagnosis: Cardiac arrest, Patient Condition: Disposition: - Admission No - Follow up/Referral Referrals: Ezio Fernández MD [Primary Care Provider] - - Patient Discharge Instructions - Post Discharge Activity
[2019-06-01 10:14] VITALS: BP 0/0; BMI 33.0
[2019-06-01 10:47] VITALS: PULSE 0; TEMP 0
== END 2019-06-01 12:00 | disposition expired ==
LOC: JER 09:41
DX: I46.9 Cardiac arrest, cause unspecified (principal); I10 Essential (primary) hypertension; E78.5 Hyperlipidemia, unspecified; I73.9 Peripheral vascular disease, unspecified; E11.9 Type 2 diabetes mellitus without complications; Z95.810 Presence of automatic (implantable) cardiac defibrillator; I50.9 Heart failure, unspecified
CPT/HCPCS: 99285-25